=== PATIENT | female | born 1930 | race Caucasian/White ===

== ENCOUNTER 2017-01-17 17:48 | Inpatient (IN) | payer MEDICARE, BC ==
--- NOTE | ~2017-01-17 | PUL ---
[facility] [address] [place]. [address] NAME: LUANA LANZA : [birth year] STATUS : ADM IN PAT#: [id number] AGE: 86 ADM/REG DATE : 01/17/17 MR#: [id number] REPORT SERV DATE: 01/25/17 DICTATED BY: DARA REICH DATE: 01/25/17 REPORT STATUS : Draft TRANSCRIBED BY: MODL DATE: 01/25/17 PULMONARY FUNCTION TEST OVERNIGHT OXIMETRY START DATE OF TESTIN01/23/2017. END DATE OF TESTIN01/24/2017. COMMENTS: Testing was conducted with the patient breathing room air. RESULTS: Total valid sampling time 6 hours 18 minutes and 23 seconds. Total time with an oxygen saturation less than 88%, 4 hours 4 minutes and 2 seconds. Oxygen desaturation event index 20.0. IMPRESSION: There was significant desaturation during this study conducted while the patient was breathing room air. Additionally, the oxygen desaturation index was elevated suggestive of possible obstructive sleep apnea. Recommend supplemental oxygen at a minimum flow rate of 2 L/minute with sleep. Additionally, recommend sleep study to evaluate for obstructive sleep apnea if clinically indicated. PS/MODL Dara Reich M.D. / [id number] CC: Denis Sherwood M.D.
--- NOTE | ~2017-01-17 | DS ---
Discharge Summary [facility] [address] [place]. [address] NAME: LUANA LANZA : [birth year] STATUS : DIS IN PAT#: [id number] AGE: 86 ADM/REG DATE : 01/17/17 MR#: [id number] REPORT SERV DATE: 01/26/17 DICTATED BY: PERCY NELSON DATE: 01/25/17 REPORT STATUS : Draft TRANSCRIBED BY: MODL DATE: 01/25/17 ADMISSION DATE: 01/17/2017 DISCHARGE DATE: 01/25/2017 DISCHARGE DIAGNOSES: 1. Acute hypoxemic respiratory failure. 2. Possible partially treated pneumonia on admission. 3. Suspected pulmonary emboli, V/Q scanning, and CT imaging declined by the patient. 4. Popliteal deep vein thrombosis, left. 5. Type 2 diabetes. Hemoglobin A1c 6.3. 6. Elevated BNP with normal ejection fraction. 7. Hypertension. 8. Coronary artery disease, see cardiac catheterization 05/2015, with severe coronary calcification. Guideline directed medical therapy recommended at that time. 9. Anemia. 10.B12 deficiency on replacement. 11.Vitamin D deficiency on replacement. 12.History of colon polyps and diverticulosis. Last colonoscopy 03/05/2014. OPERATIONS AND PROCEDURES: None. PRESENT ILLNESS: This is an 86-year-old white female who was admitted by Dr. Aguirre on 01/17/2017 with diagnoses of: 1. Bilateral pneumonia. 2. Acute hypoxia. 3. Type 2 diabetes. 4. Hypertension as described on admission history and physical examination. Significant history was that she had been in the emergency room on 01/15/2017 with shortness of breath and a productive cough with clear mucus. A chest x-ray showed possible infiltrate versus atelectasis. She was sent home on azithromycin. She returned to her primary care physician's office without improvement with significant hypoxemia with an O2 sat of 86%. She is referred for admission. ADDITIONAL HISTORY: Per Dr. Aguirre. PHYSICAL EXAMINATION: Per Dr. Aguirre. ADMISSION LABORATORY: Per Dr. Aguirre. HOSPITAL COURSE: She was admitted as described. Cultures were obtained in addition to standard pneumonia studies. She was started on antimicrobial therapy with Levaquin and subsequently changed to Zithromax and cefadroxil. Relative to the possibility of partially treated pneumonia on admission, she had a white count that was 10.6. Urine Legionella and streptococcal antigens were negative. Flu screen Discharge Summary [facility] [address] [place]. [address] NAME: LUANA LANZA : [birth year] STATUS : DIS IN PAT#: [id number] AGE: 86 ADM/REG DATE : 01/17/17 MR#: [id number] REPORT SERV DATE: 01/26/17 DICTATED BY: PERCY NELSON DATE: 01/25/17 REPORT STATUS : Draft TRANSCRIBED BY: JAMIL DATE: 01/25/17 was negative. Blood cultures done on 01/15/2017 through the emergency room and 01/17/2017 on admission here were negative. A sputum was referred for culture but the quality was poor and no culture was done. Her chest x-ray on 01/15/2017 in the emergency room showed patchy bibasilar atelectasis or infiltrate with small amount of pleural fluid. Her admission chest x-ray on 01/17/2017 showed shallow inspiration with mild right basilar atelectasis. Venous ultrasound imaging done because of edema on 01/18/2017 showed partial deep clot in the popliteal and calf vein on the left. CTA chest for V/Q imaging was recommended to the patient but declined. Heparin and Coumadin were initiated. An echocardiogram was done to evaluate her left and right ventricular function and this was normal. Her hospitalist care was assumed by the undersigned on 01/21/2017 and she was followed until discharge. She had no mucosal bleeding on heparin and Coumadin. Her discharge INR was 2.3 on the 15th, having been 2.3 on the 14th, 1.9 on the 13. She did not report any mucosal bleeding on anticoagulation. Her hemoglobin levels were 11.8 on the , 10.3 on the 12th, and 10.4 at discharge. Her BNP was elevated at 619 on the . Her echo was as noted. Diuretic therapy was initiated by the undersigned and a followup BNP was 230 on 01/22/2017. By the time of discharge, her edema had significantly improved. Her O2 sat at rest was normal at 94 but she significantly desaturated to 84 with ambulation and home O2 was prescribed. It was felt by the undersigned that she likely had sleep- disordered breathing. Overnight oximetry was done and she had significant desaturation with an O2 sat less than 88%, 4 hours 4 minutes and 2 seconds. Supplemental oxygen was recommended with additional outpatient sleep study testing. She initially declined but later accepted home health care. She was seen by physical therapy on the and home with home health care PT was recommended. Today, it was felt that she has achieved a level of improvement and stability where she can be safely discharged home with outpatient followup to see Dr. Esteban's partner, Dr. Robertson on Sunday at 8:30 for PT, INR, CBC, and office followup. She will have home health care for home evaluation med rec, PT eval and treatment and Coumadin teaching. She will have O2 at 2 L/min by nasal cannula with ambulation and at night. DISCHARGE MEDICATIONS: Her discharge medications will be aspirin 81 mg daily; atenolol 50 mg daily; vitamin B12, 1000 mcg daily; vitamin D 2000 units daily; Lasix 20 mg twice daily; Mucinex 1200 mg twice daily; potassium 10 mEq with meals; Coumadin 3 mg on odd days, 4 mg on even days, pending outpatient followup; Glucotrol 20 mg before breakfast and supper watching Discharge Summary [address] [address] NAME: LUANA LANZA : [birth year] STATUS : DIS IN PAT#: [id number] AGE: 86 ADM/REG DATE : 01/17/17 MR#: [id number] REPORT SERV DATE: 01/26/17 DICTATED BY: PERCY NELSON DATE: 01/25/17 REPORT STATUS : Draft TRANSCRIBED BY: JAMIL DATE: 01/25/17 for hypoglycemia (home dose); Zofran 4 mg p.o. every 4 hours as needed for nausea and vomiting. Discharge time greater than 30 minutes. DICTATED BY: Percy Nelson M.D. DD/JAMIL Percy Nelson M.D. / [id number] CC: Denis Sherwood M.D.
--- NOTE | ~2017-01-17 | HP ---
History And Physical [place] [address] [facility] [place]. [address] NAME: LUANA LANZA : [birth year] STATUS : ADM IN [facility]#: [id number] AGE: 86 ADM/REG DATE : 01/17/17 MR#: [id number] REPORT SERV DATE: 01/18/17 DICTATED BY: MARISEL RECINOS DATE: 01/17/17 REPORT STATUS : Draft TRANSCRIBED BY: JAMIL DATE: 01/17/17 DATE OF ADMISSION: 01/17/2017 CHIEF COMPLAINT: Shortness of breath and cough. HISTORY OF PRESENT ILLNESS: This is an 86-year-old female with a past medical history of hypertension and type 2 diabetes, on 01/15/2017, developed shortness of breath and worsening productive cough, which the patient states it was a clear mucus, but worsening breathing and painful deep inspiration. She came to the emergency department on 01/15/2017, had lab work done and he was also diagnosed with bilateral pneumonia and sent home with azithromycin. The patient was seen by primary care's office today with Dr. Esteban, who examined the patient, for which the patient had complaints of worsening symptoms, increased fatigue. The patient also was found to be hypoxic with an O2 saturation of 86%. The patient denied any orthopnea, denied any increased lower extremity edema. She is not up to date for her Pneumovax nor influenza vaccines and was directly admitted to the hospital by her primary care and brought by EMS. PAST MEDICAL HISTORY: Coronary artery disease, B12 deficiency, type 2 diabetes, hyperlipidemia, hypertension, vitamin D deficiency, history of pneumonia. ALLERGIES: ALLERGIES TO METFORMIN AND SULFA. HOME MEDICATIONS: Nitroglycerin sublingual p.r.n., glipizide 10 mg two tablets in the morning, one tablet at noon, and two tablets in the evening, vitamin D 1000 units p.o. daily, atenolol 50 mg p.o. daily, aspirin 325 mg p.o. daily, azithromycin/Z-Bro, omega-3, and fish oil. FAMILY HISTORY: Hypertension and type 2 diabetes. PAST SURGICAL HISTORY: Cholecystectomy, hysterectomy, tonsillectomy, and cataract surgery per primary care's medical records. SOCIAL HISTORY: Denies any history of tobacco, alcohol, or illicit drugs. Lives at home with her daughter. PHYSICAL EXAMINATION: VITAL SIGNS: Temp of 97.3, blood pressure 180/73 with a pulse of 76, respirations 16, and saturating 94% on 2 L. GENERAL: The patient is alert, oriented, and currently in no distress. Well nourished. HEENT: Pupils equal, round, and reactive to light. Extraocular muscles are intact. Mild dry mucous membranes. CARDIOVASCULAR: S1, S2. No appreciated rubs or gallops. No JVD. RESPIRATORY: Decreased breath sounds at the base. The patient is not able to take full deep breaths, however, no wheezing, no rhonchi appreciated and currently no tachypnea. ABDOMEN: Positive bowel sounds. Soft, nontender. No rebound. No fluid waves. No distention. History And Physical [address] [address] NAME: LUANA LANZA : [birth year] STATUS : ADM IN [facility]#: [id number] AGE: 86 ADM/REG DATE : 01/17/17 MR#: [id number] REPORT SERV DATE: 01/18/17 DICTATED BY: MARISEL RECINOS DATE: 01/17/17 REPORT STATUS : Draft TRANSCRIBED BY: JAMIL DATE: 01/17/17 EXTREMITIES: 2+ pulse bilaterally with trace of edema of the right lower extremity and a positive increased pedal edema of the left lower extremity, greater than the right. Positive pulses. NEUROLOGIC: Cranial nerves II through XII are grossly intact. He moves all four extremities. No neuro focal deficits. LABORATORY DATA: Currently pending. EKG with normal sinus rhythm, Q-waves with the inferior leads. No ST elevation. ASSESSMENT AND PLAN: 1. Bilateral pneumonia. 2. Acute hypoxia. 3. Type 2 diabetes. 4. Hypertension. We will recheck repeat labs. We will repeat chest x-ray. We will place on antibiotics. We will give IV antibiotics for now. Follow up with blood culture. Also, we will place on bronchodilators and incentive spirometer for pulmonary toileting. The patient will be admitted to a cardiac telemetry, closely monitored with fall precautions ordered. ADA diet. Also, we will check a urine Strep and urine Legionella antigen as well as an influenza swab. I will closely monitor. GT/JAMIL Marisel Recinos M.D. / [id number] CC: Denis Smith M.D.
[~2017-01-17 17:48] MED LIST: ASAB PO; CHERATUSSIN PO; COREG6 PO; GLUCOTRO10 PO; IMDUR30 PO; LIPITOR40 PO; NORV5 PO; NTG150 SL; OMNICEF300 PO; PLAVIX PO; PRIN5 PO; TAMIFLU PO; TESS PO; VITAMIN D1000 UNI1 PO; ZITH250 PO; [UNRECOGNIZED DRUG - OTHER] PO
[2017-01-17] MEDS ORDERED: ASAEC PO (20:15)
[2017-01-17] MEDS ORDERED: CYANO1000T PO (20:23)
[2017-01-17] MEDS ORDERED: ATEN50 PO (20:23)
[2017-01-17 20:25] LABS: BASOPHILS 0.1 %; BASOPHILS ABSOLUTE 0.01 10/3/uL (0.0-0.16); EOSINOPHILS 0.1 %; EOSINOPHILS ABSOLUTE 0.01 10/3/uL (0.0-0.53); HEMATOCRIT 38.3 % (36.0-48.0); HEMOGLOBIN 11.8 g/dL (12.0-16.0); IMMATURE GRANULOCYTES 0.2 %; IMMATURE GRANULOCYTES ABSOLUTE 0.02 10/3/uL (0.0-0.11); LYMPHOCYTES 15.1 %; MEAN CORPUS HGB CONC 30.8 g/dL (32.0-36.0); MEAN CORPUSCULAR VOLUME 81.1 fL (80-100); MEAN PLATELET VOLUME 9.2 fL (9.2-13.0); MONOCYTES 6.8 %; MONOCYTES ABSOLUTE 0.72 10/3/uL (0.21-1.20); NEUTROPHILS 77.7 %; NEUTROPHILS ABSOLUTE 8.21 10/3/uL (2.02-8.40); PLATELET COUNT 222 10/3/uL (150-400); RBC DISTRIBUTION WIDTH 16.9 % (12.0-16.0); RED CELL COUNT 4.72 10/6/uL (4.0-5.6)
[2017-01-17 20:26] LABS: MANUAL DIFF NO %; WHITE BLOOD CELLS 10.6 10/3/uL (4.5-10.5)
[2017-01-17 20:33] LABS: INTERNATIONAL NORMAL RATI 1.2 UNITS (-); PARTIAL THROMBO TIME 25.6 SEC (22.5-37.2); PROTIME (NOT ORD) 14.7 SEC (12.0-14.5)
[2017-01-17 20:49] LABS: A/G RATIO 0.8 (0.7-1.9); ALBUMIN 3.2 G/DL (3.5-5.0); BUN (BLOOD UREA NITROGEN) 15 MG/DL (6-23); CALCIUM, SERUM 9.7 MG/DL (8.5-10.4); CHLORIDE, SERUM 104 MMOL/L (96-112); CO2 (CARBON DIOXIDE) 30 MMOL/L (24-34); CREATININE 0.79 MG/DL (0.55-1.02); GFR AFRICAN AMERICAN 78 ML/MIN (>=60); GFR NON AFRICAN AMERICAN 67 ML/MIN (>=60); POTASSIUM, SERUM 3.6 MMOL/L (3.5-5.3); SGOT(AST) 31 U/L (5-40); SGPT(ALT) 22 U/L (5-65); TOTAL BILIRUBIN 0.4 MG/DL (0-1.2); TOTAL PROTEIN 7.2 G/DL (6.0-8.5)
[2017-01-17 20:50] LABS: ALKALINE PHOSPHATASE 90 U/L (45-117); GLUCOSE, SERUM 137 MG/DL (60-99); SODIUM, SERUM 133 MMOL/L (135-148)
[2017-01-17 23:08] LABS: INFLUENZA A SCREEN NEGATIVE (NEGATIVE); INFLUENZA B SCREEN NEGATIVE (NEGATIVE)
[2017-01-18 04:30] LABS: BASOPHILS 0.1 %; BASOPHILS ABSOLUTE 0.01 10/3/uL (0.0-0.16); EOSINOPHILS 0.1 %; EOSINOPHILS ABSOLUTE 0.01 10/3/uL (0.0-0.53); HEMATOCRIT 37.3 % (36.0-48.0); HEMOGLOBIN 11.6 g/dL (12.0-16.0); IMMATURE GRANULOCYTES 0.3 %; IMMATURE GRANULOCYTES ABSOLUTE 0.03 10/3/uL (0.0-0.11); LYMPHOCYTES 10.2 %; MANUAL DIFF NO %; MEAN CORPUS HGB CONC 31.1 g/dL (32.0-36.0); MEAN CORPUSCULAR HEMOGLOB 25.3 pg (26.0-34.0); MEAN CORPUSCULAR VOLUME 81.4 fL (80-100); MEAN PLATELET VOLUME 9.4 fL (9.2-13.0); MONOCYTES 8.3 %; MONOCYTES ABSOLUTE 0.81 10/3/uL (0.21-1.20); NEUTROPHILS ABSOLUTE 7.92 10/3/uL (2.02-8.40); PLATELET COUNT 219 10/3/uL (150-400); RBC DISTRIBUTION WIDTH 17.1 % (12.0-16.0); RED CELL COUNT 4.58 10/6/uL (4.0-5.6); WHITE BLOOD CELLS 9.8 10/3/uL (4.5-10.5)
[2017-01-18 04:50] LABS: BUN (BLOOD UREA NITROGEN) 15 MG/DL (6-23); CALCIUM, SERUM 9.6 MG/DL (8.5-10.4); CHLORIDE, SERUM 104 MMOL/L (96-112); CO2 (CARBON DIOXIDE) 30 MMOL/L (24-34); CREATININE 0.85 MG/DL (0.55-1.02); GFR AFRICAN AMERICAN 71 ML/MIN (>=60); GFR NON AFRICAN AMERICAN 62 ML/MIN (>=60); POTASSIUM, SERUM 3.4 MMOL/L (3.5-5.3); SODIUM, SERUM 136 MMOL/L (135-148)
[2017-01-18 04:54] LABS: GLUCOSE, SERUM 66 MG/DL (60-99)
[2017-01-18 12:50] LABS: GLYCOHEMOGLOBIN (HbA1c) 6.3 % (4.7-6.1)
[2017-01-20 06:59] LABS: HEMOGLOBIN 11.4 g/dL (12.0-16.0)
[2017-01-20 07:05] LABS: INTERNATIONAL NORMAL RATI 1.2 UNITS (-); PROTIME (NOT ORD) 14.9 SEC (12.0-14.5)
[2017-01-21 04:17] LABS: INTERNATIONAL NORMAL RATI 1.2 UNITS (-)
[2017-01-21 04:19] LABS: HEMATOCRIT 34.4 % (36.0-48.0); HEMOGLOBIN 10.6 g/dL (12.0-16.0)
[2017-01-22 05:34] LABS: BASOPHILS 0.2 %; BASOPHILS ABSOLUTE 0.01 10/3/uL (0.0-0.16); EOSINOPHILS 1.6 %; EOSINOPHILS ABSOLUTE 0.08 10/3/uL (0.0-0.53); HEMATOCRIT 33.8 % (36.0-48.0); HEMOGLOBIN 10.3 g/dL (12.0-16.0); IMMATURE GRANULOCYTES 0.2 %; IMMATURE GRANULOCYTES ABSOLUTE 0.01 10/3/uL (0.0-0.11); LYMPHOCYTES 20.8 %; LYMPHOCYTES ABSOLUTE 1.07 10/3/uL (0.67-4.30); MEAN CORPUS HGB CONC 30.5 g/dL (32.0-36.0); MEAN CORPUSCULAR HEMOGLOB 24.4 pg (26.0-34.0); MEAN CORPUSCULAR VOLUME 80.1 fL (80-100); MEAN PLATELET VOLUME 8.8 fL (9.2-13.0); MONOCYTES 10.1 %; MONOCYTES ABSOLUTE 0.52 10/3/uL (0.21-1.20); NEUTROPHILS 67.1 %; NEUTROPHILS ABSOLUTE 3.46 10/3/uL (2.02-8.40); PLATELET COUNT 268 10/3/uL (150-400); RBC DISTRIBUTION WIDTH 16.9 % (12.0-16.0); RED CELL COUNT 4.22 10/6/uL (4.0-5.6)
[2017-01-22 05:40] LABS: INTERNATIONAL NORMAL RATI 1.5 UNITS (-)
[2017-01-22 05:41] LABS: CALCIUM, SERUM 9.5 MG/DL (8.5-10.4); CHLORIDE, SERUM 103 MMOL/L (96-112); CO2 (CARBON DIOXIDE) 29 MMOL/L (24-34); CREATININE 0.76 MG/DL (0.55-1.02); GFR AFRICAN AMERICAN 82 ML/MIN (>=60); GFR NON AFRICAN AMERICAN 71 ML/MIN (>=60); SODIUM, SERUM 139 MMOL/L (135-148)
[2017-01-22 05:43] LABS: BUN (BLOOD UREA NITROGEN) 11 MG/DL (6-23); GLUCOSE, SERUM 136 MG/DL (60-99)
[2017-01-22 05:45] LABS: MANUAL DIFF NO %; WHITE BLOOD CELLS 5.2 10/3/uL (4.5-10.5)
[2017-01-22 06:05] LABS: PARTIAL THROMBO TIME 113.1 SEC (22.5-37.2); PROTIME (NOT ORD) 17.9 SEC (12.0-14.5)
[2017-01-23 07:14] LABS: BASOPHILS 0.4 %; BASOPHILS ABSOLUTE 0.02 10/3/uL (0.0-0.16); EOSINOPHILS 1.5 %; EOSINOPHILS ABSOLUTE 0.08 10/3/uL (0.0-0.53); HEMOGLOBIN 11.5 g/dL (12.0-16.0); IMMATURE GRANULOCYTES 0.6 %; IMMATURE GRANULOCYTES ABSOLUTE 0.03 10/3/uL (0.0-0.11); LYMPHOCYTES 23.1 %; LYMPHOCYTES ABSOLUTE 1.25 10/3/uL (0.67-4.30); MEAN CORPUS HGB CONC 30.3 g/dL (32.0-36.0); MEAN CORPUSCULAR HEMOGLOB 24.6 pg (26.0-34.0); MEAN CORPUSCULAR VOLUME 81.4 fL (80-100); MEAN PLATELET VOLUME 8.8 fL (9.2-13.0); MONOCYTES ABSOLUTE 0.54 10/3/uL (0.21-1.20); NEUTROPHILS 64.4 %; NEUTROPHILS ABSOLUTE 3.49 10/3/uL (2.02-8.40); PLATELET COUNT 304 10/3/uL (150-400); RBC DISTRIBUTION WIDTH 16.9 % (12.0-16.0); RED CELL COUNT 4.67 10/6/uL (4.0-5.6); WHITE BLOOD CELLS 5.4 10/3/uL (4.5-10.5)
[2017-01-23 07:16] LABS: INTERNATIONAL NORMAL RATI 1.9 UNITS (-)
[2017-01-23 07:17] LABS: PARTIAL THROMBO TIME 85.6 SEC (22.5-37.2)
[2017-01-23 07:18] LABS: MANUAL DIFF NO %
[2017-01-23 07:19] LABS: PROTIME (NOT ORD) 21.5 SEC (12.0-14.5)
[2017-01-23 07:23] LABS: BUN (BLOOD UREA NITROGEN) 12 MG/DL (6-23); CALCIUM, SERUM 10.1 MG/DL (8.5-10.4); CHLORIDE, SERUM 98 MMOL/L (96-112); CO2 (CARBON DIOXIDE) 34 MMOL/L (24-34); CREATININE 0.77 MG/DL (0.55-1.02); GFR AFRICAN AMERICAN 80 ML/MIN (>=60); GFR NON AFRICAN AMERICAN 69 ML/MIN (>=60); GLUCOSE, SERUM 152 MG/DL (60-99); POTASSIUM, SERUM 4.2 MMOL/L (3.5-5.3); SODIUM, SERUM 137 MMOL/L (135-148)
[2017-01-24 04:58] LABS: BASOPHILS 0.4 %; BASOPHILS ABSOLUTE 0.02 10/3/uL (0.0-0.16); EOSINOPHILS 1.5 %; EOSINOPHILS ABSOLUTE 0.08 10/3/uL (0.0-0.53); HEMATOCRIT 35.3 % (36.0-48.0); HEMOGLOBIN 10.8 g/dL (12.0-16.0); IMMATURE GRANULOCYTES 0.4 %; IMMATURE GRANULOCYTES ABSOLUTE 0.02 10/3/uL (0.0-0.11); LYMPHOCYTES 19.1 %; LYMPHOCYTES ABSOLUTE 0.99 10/3/uL (0.67-4.30); MEAN CORPUS HGB CONC 30.6 g/dL (32.0-36.0); MEAN CORPUSCULAR HEMOGLOB 24.7 pg (26.0-34.0); MEAN CORPUSCULAR VOLUME 80.6 fL (80-100); MEAN PLATELET VOLUME 8.6 fL (9.2-13.0); MONOCYTES 11.6 %; NEUTROPHILS ABSOLUTE 3.47 10/3/uL (2.02-8.40); PLATELET COUNT 290 10/3/uL (150-400); RBC DISTRIBUTION WIDTH 16.6 % (12.0-16.0); RED CELL COUNT 4.38 10/6/uL (4.0-5.6); WHITE BLOOD CELLS 5.2 10/3/uL (4.5-10.5)
[2017-01-24 05:04] LABS: MANUAL DIFF NO %
[2017-01-24 05:09] LABS: BUN (BLOOD UREA NITROGEN) 13 MG/DL (6-23); CALCIUM, SERUM 9.9 MG/DL (8.5-10.4); CHLORIDE, SERUM 98 MMOL/L (96-112); CO2 (CARBON DIOXIDE) 32 MMOL/L (24-34); CREATININE 0.67 MG/DL (0.55-1.02); GFR AFRICAN AMERICAN 92 ML/MIN (>=60); GFR NON AFRICAN AMERICAN 79 ML/MIN (>=60); GLUCOSE, SERUM 136 MG/DL (60-99); POTASSIUM, SERUM 3.8 MMOL/L (3.5-5.3); SODIUM, SERUM 137 MMOL/L (135-148)
[2017-01-24 05:15] LABS: INTERNATIONAL NORMAL RATI 2.3 UNITS (-); PROTIME (NOT ORD) 24.8 SEC (12.0-14.5)
[2017-01-25 05:25] LABS: BASOPHILS 0.4 %; BASOPHILS ABSOLUTE 0.02 10/3/uL (0.0-0.16); EOSINOPHILS 1.3 %; EOSINOPHILS ABSOLUTE 0.07 10/3/uL (0.0-0.53); HEMOGLOBIN 10.4 g/dL (12.0-16.0); IMMATURE GRANULOCYTES 0.2 %; IMMATURE GRANULOCYTES ABSOLUTE 0.01 10/3/uL (0.0-0.11); LYMPHOCYTES 24.4 %; LYMPHOCYTES ABSOLUTE 1.33 10/3/uL (0.67-4.30); MEAN CORPUS HGB CONC 30.6 g/dL (32.0-36.0); MEAN CORPUSCULAR HEMOGLOB 24.9 pg (26.0-34.0); MEAN CORPUSCULAR VOLUME 81.3 fL (80-100); MEAN PLATELET VOLUME 8.8 fL (9.2-13.0); MONOCYTES 11.7 %; MONOCYTES ABSOLUTE 0.64 10/3/uL (0.21-1.20); NEUTROPHILS ABSOLUTE 3.39 10/3/uL (2.02-8.40); PLATELET COUNT 296 10/3/uL (150-400); RBC DISTRIBUTION WIDTH 16.8 % (12.0-16.0); RED CELL COUNT 4.18 10/6/uL (4.0-5.6); WHITE BLOOD CELLS 5.5 10/3/uL (4.5-10.5)
[2017-01-25 05:31] LABS: MANUAL DIFF NO %
[2017-01-25 05:38] LABS: BUN (BLOOD UREA NITROGEN) 15 MG/DL (6-23); CALCIUM, SERUM 9.5 MG/DL (8.5-10.4); CHLORIDE, SERUM 100 MMOL/L (96-112); CO2 (CARBON DIOXIDE) 34 MMOL/L (24-34); CREATININE 0.77 MG/DL (0.55-1.02); GFR AFRICAN AMERICAN 80 ML/MIN (>=60); GFR NON AFRICAN AMERICAN 69 ML/MIN (>=60); GLUCOSE, SERUM 122 MG/DL (60-99); POTASSIUM, SERUM 4.5 MMOL/L (3.5-5.3); SODIUM, SERUM 138 MMOL/L (135-148)
[2017-01-25 05:40] LABS: INTERNATIONAL NORMAL RATI 2.3 UNITS (-); PROTIME (NOT ORD) 25.3 SEC (12.0-14.5)
[2017-01-25 05:43] LABS: PARTIAL THROMBO TIME 123.4 SEC (22.5-37.2)
[2017-01-25] MEDS ORDERED: ASAB PO (10:55)
[2017-01-25] MEDS ORDERED: KLOR-CON 1010 MEQ PO (10:58)
[2017-01-25] MEDS ORDERED: L20 PO (11:00)
[2017-01-25] MEDS ORDERED: ZOFRAN ODT4 MG PO (11:01)
[2017-01-25] MEDS ORDERED: COUMADIN3 MG PO (11:03)
[2017-01-25] MEDS ORDERED: COUMADIN4 MG PO (11:04)
[2017-01-25] MEDS ORDERED: HUMI PO (11:05)
[2017-03-21] MEDS ORDERED: HALF81 PO (19:46)
[2017-03-21] MEDS ORDERED: XARELTO20 MG PO (19:47)
[2017-03-21] MEDS ORDERED: IMDUR30 PO (19:48)
[2017-03-21] MEDS ORDERED: NITROSTAT0.4 MG SL (19:49)
[2017-03-21] MEDS ORDERED: COZ50 PO (19:50)
[2017-03-21] MEDS ORDERED: GLUCOTRO10 PO (19:50)
[2017-03-21] MEDS ORDERED: PERI-COLACE1 TAB PO (19:57)
[2017-04-19] MEDS ORDERED: REG5 PO (20:13)
[2017-04-19] MEDS ORDERED: KLOR-CON 1010 MEQ PO (20:13)
[2017-04-19] MEDS ORDERED: PRILO PO (20:13)
[2017-04-19] MEDS ORDERED: BUM1 PO (20:13)
[2017-04-19] MEDS ORDERED: VIST50 PO (20:15)
[2017-04-19] MEDS ORDERED: ZOLOFT25 MG PO (20:15)
== END 2017-01-25 17:12 | disposition home health service (06) | DRG 175 ==
LOC: 6NO 17:48
PROVIDERS: Internal Medicine
DX: I26.99 Other pulmonary embolism without acute cor pulmonale (principal); J18.9 Pneumonia, unspecified organism; J96.01 Acute respiratory failure with hypoxia; I82.432 Acute embolism and thrombosis of left popliteal vein; E11.9 Type 2 diabetes mellitus without complications; I10 Essential (primary) hypertension; I25.10 Atherosclerotic heart disease of native coronary artery without angina pectoris; I25.2 Old myocardial infarction; E53.8 Deficiency of other specified B group vitamins; K57.30 Diverticulosis of large intestine without perforation or abscess without bleeding; Z90.49 Acquired absence of other specified parts of digestive tract; Z86.010 Personal history of colon polyps; Z87.01 Personal history of pneumonia (recurrent); Z90.710 Acquired absence of both cervix and uterus; Z88.8 Allergy status to other drugs, medicaments and biological substances; Z88.2 Allergy status to sulfonamides; Z82.49 Family history of ischemic heart disease and other diseases of the circulatory system; Z79.82 Long term (current) use of aspirin; Z79.84 Long term (current) use of oral hypoglycemic drugs; Z79.899 Other long term (current) drug therapy
CPT/HCPCS: 71010; 71020; 80048; 80053; 82962; 83036; 83735; 83880; 84132; 84443; 84484; 85014; 85018; 85025; 85379; 85610; 85730; 87040; 87070; 87205; 87449; 87804; 93005; 93306; 93970; 94640; 94762; 97110-GP; 97116-GP; 97162-GP; 97530-GP; 99285; A9270-GY; G8978-CJ-GP; G8979-CI-GP; J1956

== ENCOUNTER 2017-01-27 21:34 | Inpatient (IN) | payer MEDICARE, BC ==
--- NOTE | ~2017-01-27 | DS ---
Discharge Summary [facility] [address] [place]. [address] NAME: LUANA LANZA : [birth year] STATUS : DIS IN PAT#: [id number] AGE: 86 ADM/REG DATE : 01/27/17 MR#: [id number] REPORT SERV DATE: 02/01/17 DICTATED BY: TONY ARIAS DATE: 01/31/17 REPORT STATUS : Draft TRANSCRIBED BY: MODL DATE: 01/31/17 ADMISSION DATE: 01/27/2017 DISCHARGE DATE: 01/30/2017 REASON FOR ADMISSION: This is an 86-year-old female who came in with chief complaint of shortness of breath after having a recent hospital stay from 01/17/2017 to 01/25/2017 for pneumonia, left lower extremity DVT, and presumed PE. DISCHARGE DIAGNOSES: 1. Multifactorial hypoxemic respiratory failure. 2. Elevated troponin secondary to type 2 demand ischemia. 3. Suspected pulmonary embolism. 4. Recent subacute left lower extremity deep venous thrombosis. 5. Diabetes type 2. 6. Hypertension. HOSPITAL COURSE: 1. Hypoxemic respiratory failure, multifactorial. The patient was admitted and Cardiology was consulted due to an abnormal troponin level that was 0.61, and then a followup troponin was 0.53 and 0.26. As previously mentioned, the patient just had a recent hospital stay for pneumonia and presumed PE after finding a left lower extremity DVT. The patient had refused to let a CTA of the chest or V/Q scan be taken, so the patient was presumed to have a PE and placed on Coumadin. Her INR when coming in to the hospital at admit was 1.6. She was found to have the elevated troponins, but due to the recent respiratory issues and PE, the feeling was that this elevated troponin was secondary to type 2 demand ischemia. The patient's dyspnea resolved here at the hospital. She was already on home oxygen after her last hospitalization and she was at her baseline at 2 liters nasal cannula without any respiratory distress. After speaking with the patient about using Coumadin, she was not excited about having the frequent PT/INRs drawn at home and dosage changes with the Coumadin. Apparently, the Xarelto and Eliquis had been explored options for her at the last hospital stay, but her insurance would cover Xarelto at a cost of 40 dollars per month co-pay. She felt like that was too expensive, but after having gone home and dealt with the Coumadin maintenance, she felt like she wanted to go ahead and try the Xarelto, so we have discontinued her Coumadin and started her on Xarelto here at the hospital. The patient was able to adequately walk to the kitchen, restroom, and bedroom at home and her ambulatory status has not changed here at the hospital, so she had home health and will need to resume that at discharge. DISCHARGE CONDITION: Stable. DISCHARGE MEDICATIONS: 1. Glipizide 20 mg p.o. a.c. and h.s. 2. Vitamin D 2000 units p.o. daily. 3. Vitamin B12 1000 mcg p.o. daily. 4. Aspirin 81 mg p.o. daily. Discharge Summary [address] [address] NAME: LUANA LANZA : [birth year] STATUS : DIS IN PAT#: [id number] AGE: 86 ADM/REG DATE : 01/27/17 MR#: [id number] REPORT SERV DATE: 02/01/17 DICTATED BY: TONY ARIAS DATE: 01/31/17 REPORT STATUS : Draft TRANSCRIBED BY: JAMIL DATE: 01/31/17 5. Potassium chloride 10 mEq p.o. t.i.d. 6. Lasix 40 mg p.o. daily. 7. Isosorbide mononitrate 30 mg p.o. b.i.d. 8. Lopressor 50 mg p.o. b.i.d. 9. Xarelto 20 mg p.o. daily. DISCHARGE PLAN: The patient is discharged home to resume home health services, initiate Xarelto and discontinue Coumadin, and followup with Cardiology in one month and her primary care, Dr. Cristian Esteban, in one to two weeks. DICTATED BY: ROB Salas/JAMIL Tony Arias APN / [id number] CC: Denis Yanez M.D.
--- NOTE | ~2017-01-27 | HP ---
History And Physical [place] [address] [facility] [place]. [address] NAME: LUANA LANZA : [birth year] STATUS : ADM IN [facility]#: [id number] AGE: 86 ADM/REG DATE : 01/27/17 MR#: [id number] REPORT SERV DATE: 01/28/17 DICTATED BY: GARDENIA GLORIA DATE: 01/27/17 REPORT STATUS : Draft TRANSCRIBED BY: MODL DATE: 01/27/17 DATE OF ADMISSION: 01/27/2017 POINT OF ENTRY: Transfer from [facility] Emergency Department. PRIMARY INSPECTOR WATER POLLUTION CONTROL: Dr. Quick. CHIEF COMPLAINT: Shortness of breath. HISTORY OF PRESENT ILLNESS: Ms. Lanza is an 86-year-old female with a history of non- insulin-dependent diabetes mellitus type 2, hypertension, coronary artery disease, as well as a recent diagnosis of pneumonia and lower extremity DVT, who presented to [facility] Emergency Department with report of acute onset of shortness of breath. The patient was admitted to our service from 01/17/2017 through 01/25/2017 for pneumonia, hypoxic respiratory failure, left lower extremity DVT, as well as presumed pulmonary embolism. She was initiated on anticoagulation. She completed her course of antibiotic therapy during her hospital stay. Echocardiogram done at that time was unremarkable despite an elevated BNP. Overnight pulse oximetry was notable for nocturnal hypoxemia with recommendation for formal sleep study. She was discharged to home with 2 L by nasal cannula at night as well as with ambulation. The patient states that she was doing well up until today when she noted the acute onset of shortness of breath both at rest as well as with exertion. She denied any fevers, night sweats, chills, chest pain, palpitations, abdominal pain, nausea, vomiting, diarrhea, constipation, dysuria, lower extremity edema, melena, hematochezia, or hemoptysis. She does report some cough and sputum production, which is unchanged as well as occasional wheezing. Initial evaluation at [facility] Emergency Department is notable for a chest x-ray that shows a small right-sided pleural effusion, but otherwise negative for pneumonia. Labs were notable for an INR of 1.3. Troponin was elevated at 0.70. D-dimer also elevated at 1.53 as was her proBNP of 2523. Given the subtherapeutic INR, she was placed on a heparin drip. Given aspirin, DuoNebs, as well as a single dose of IV Lasix 40 mg IV x1. Upon arrival to [facility], she reports that her shortness of breath has significantly improved. She cannot tell me what exactly improved her breathing. Comprehensive review of system otherwise negative unless listed in history of present illness. PREVIOUS MEDICAL HISTORY: 1. Left lower extremity DVT, on Coumadin. 2. Pfc-mivqxey-swltyqlra diabetes mellitus type 2. Hemoglobin A1c of 6.3. 3. Hypertension. 4. Coronary artery disease. 5. Presumed obstructive sleep apnea, awaiting formal sleep study test. 6. Vitamin B12 deficiency. History And Physical [place] [address] [facility] [place]. [address] NAME: LUANA LANZA : [birth year] STATUS : ADM IN [facility]#: [id number] AGE: 86 ADM/REG DATE : 01/27/17 MR#: [id number] REPORT SERV DATE: 01/28/17 DICTATED BY: GARDENIA GLORIA DATE: 01/27/17 REPORT STATUS : Draft TRANSCRIBED BY: JAMIL DATE: 01/27/17 7. Vitamin D deficiency. 8. Chronic anemia. SURGICAL HISTORY: 1. Cholecystectomy. 2. Tonsillectomy. 3. Abdominal hysterectomy. 4. Cataract surgery. ALLERGIES: ARE TO METFORMIN AND SULFA DRUGS. HOME MEDICATIONS: Pending at the time of dictation. SOCIAL HISTORY: Denies any tobacco, alcohol, or illicits. FAMILY HISTORY: Notable for diabetes and hypertension. LABS AND IMAGING: All obtained from transfer records from [facility] Emergency Department. 1. White count 5.6, hemoglobin 9.8, hematocrit is 30.4, platelet count is 312. INR 1.3. 2. Sodium is 135, potassium 4.2, chloride 91, carbon dioxide 30, BUN 26, creatinine 0.76, glucose of 216, calcium is 9.0, protein 6.9, albumin is 3.5, bilirubin is 0.2, ALT is 34, AST 58, alkaline phosphatase is 112. 3. Troponin 0.70. 4. D-dimer 1.53, proBNP 2523. 5. EKG per my review shows normal sinus rhythm without evidence of any acute ischemia or infarction. 6. Chest x-ray per Radiology report from [facility] shows cardiomegaly and small right pleural effusion, but otherwise, no evidence of any volume overload or pneumonia. PHYSICAL EXAMINATION: VITAL SIGNS: Temperature is 97.8 degrees Fahrenheit, pulse is 103, respirations 20, saturating 97% on 3 L by nasal cannula, blood pressure 149/67. GENERAL: The patient is awake, alert, in no acute distress, resting comfortably in bed. She is a well-developed, well-nourished elderly female. HEENT: Atraumatic and normocephalic. Moist mucous membranes. Pupils are equal, round, reactive to light and accommodation. Extraocular eye movements intact. No scleral icterus. NECK: No jugular venous distention. No carotid bruits. CARDIAC: Tachycardic rate, regular rhythm. No murmurs, rubs, or gallops. Normal S1, S2. LUNGS: On oxygen, but in no distress. Does have bibasilar inspiratory rhonchi and crackles, but no wheezes appreciated. ABDOMEN: Soft, nontender, nondistended. Good bowel sounds. No rebound, guarding, or rigidity. EXTREMITIES: Warm and well perfused with no cyanosis, clubbing, or edema. SKIN: Warm and dry. PSYCH: Affect appropriate. NEURO: Alert and oriented x3. Cranial nerves 2 through 12 grossly intact. Speech is normal. Gait not assessed. History And Physical [address] [address] NAME: LUANA LANZA : [birth year] STATUS : ADM IN [facility]#: [id number] AGE: 86 ADM/REG DATE : 01/27/17 MR#: [id number] REPORT SERV DATE: 01/28/17 DICTATED BY: GARDENIA GLORIA DATE: 01/27/17 REPORT STATUS : Draft TRANSCRIBED BY: JAMIL DATE: 01/27/17 ASSESSMENT AND PLAN: Ms. Lanza is an 86-year-old female, who presents with acute onset of shortness of breath, found to have evidence of subtherapeutic INR as well as elevated troponin level. PROBLEM LIST: 1. Subtherapeutic INR. 2. Elevated troponin level. 3. History of DVT and presumed PE. 4. Shortness of breath. 5. Elevated BNP. 6. Hypoxemia. 7. Ofh-whslehe-hhlelkptb diabetes mellitus type 2. PLAN: 1. Elevated troponin level. The patient denies any chest pain. Her EKG is nonischemic. I suspect her troponin elevation is secondary to likely PE and/or other cause of demand ischemia. We will continue to trend out cardiac enzymes, EKG, as well as telemetry monitoring. We will place the patient on aspirin and continue her heparin drip. 2. Subtherapeutic INR. The patient's INR was 1.3 at [facility]. It was 2.3 upon discharge from here a few days ago. She is on a heparin drip. Continue Coumadin as managed by pharmacy. 3. History of DVT with presumed PE. I suspect that the patient's shortness of breath may be explained by pulmonary embolism especially in light of subtherapeutic INR. The patient is currently declining CTA of the chest, as she states she cannot lie flat. It appears that she also declined CT of the chest and V/Q scan during her previous admission. We will continue to monitor. 4. Shortness of breath. Suspect this is likely multifactorial in etiology due to likely presumed PE as well as likely acute bronchitis. We will place the patient on some DuoNebs, steroids, and antibiotics, and continue to monitor. 5. Elevated BNP. The patient had an elevated BNP level at [facility]. She also had mildly elevated BNP level here during her last admission. Echocardiogram was unremarkable. She did receive Lasix at [facility], therefore, we will hold off any further Lasix at this time. We will follow up results of a chest x-ray and our own BNP level. 6. Hypoxemia. Attempt to wean as tolerated as we treat her acute bronchitis as well as presumed PE. 7. DVT prophylaxis. Heparin infusion. CODE STATUS: The patient wished to be full code. JCB/MODL Gardenia Gloria MD History And Physical [address] [place]. [address] NAME: LUANA LANZA : [birth year] STATUS : ADM IN [facility]#: [id number] AGE: 86 ADM/REG DATE : 01/27/17 MR#: [id number] REPORT SERV DATE: 01/28/17 DICTATED BY: GARDENIA GLORIA DATE: 01/27/17 REPORT STATUS : Draft TRANSCRIBED BY: MATTHEWL DATE: 01/27/17 / [id number] CC: Denis Sherwood M.D. Ondrej J Lisy, M.D.
--- NOTE | ~2017-01-27 | CN ---
Consultation Report [place] [id number] [facility] [place]. [address] NAME: LUANA LANZA : [birth year] STATUS : ADM IN PAT#: [id number] AGE: 86 ADM/REG DATE : 01/27/17 MR#: [id number] REPORT SERV DATE: 01/28/17 DICTATED BY: ORLIN LEE DATE: 01/28/17 REPORT STATUS : Draft TRANSCRIBED BY: MODL DATE: 01/28/17 CARDIOLOGY CONSULT DATE OF CONSULTATION: 01/28/2017 PRIMARY TRAINER: Dr. Eric Quick. CONSULTATION REASON: Abnormal troponin. HISTORY OF PRESENT ILLNESS: Ms. Lanza is an 86-year-old female with known coronary artery disease (for medical management only with no targets for revascularization), who was readmitted to the Hospitalist Service after being discharged three days ago with recurrent chest pain/shortness of breath and a mildly increased troponin of 0.5. She was recently admitted to the Hospitalist Service and discharged two days ago with acute hypoxic respiratory failure and found to have a DVT with suspected pulmonary embolism. She was treated medically with Coumadin with a subtherapeutic at this time. She had no confirmatory testing for pulmonary embolism as she is unable to lie flat for additional testing such as CT scans. She is now resting comfortably. ECG shows no ischemic changes. Symptoms of chest pain were rest with precordial fullness and dyspnea, but no symptoms of exertional angina. She has had no palpitations or syncope. She denies orthopnea/PND. She has some mild left lower extremity edema at the site of her prior DVT. She is currently resting comfortably with no recurrent symptoms. REVIEW OF SYSTEMS: Pertinent positives and negatives are as outlined above, all others negative. PAST MEDICAL HISTORY: 1. Coronary artery disease, for medical management only. 2. Hypertension. 3. DVT/suspected PE. 4. Anticoagulation with Coumadin. 5. Diabetes mellitus type 2. CURRENT MEDICATIONS: 1. Atenolol 50 mg daily. 2. Aspirin 81 mg daily. 3. Coumadin as directed. 4. Lasix 20 mg twice daily. 5. Potassium supplementation. 6. Zofran p.r.n. 7. Glipizide as directed. 8. Guaifenesin daily. 9. Vitamin B12 supplementation. Consultation Report [place] [id number] [place]. [address] NAME: LUANA LANZA : [birth year] STATUS : ADM IN PAT#: [id number] AGE: 86 ADM/REG DATE : 01/27/17 MR#: [id number] REPORT SERV DATE: 01/28/17 DICTATED BY: ORLIN LEE DATE: 01/28/17 REPORT STATUS : Draft TRANSCRIBED BY: MODL DATE: 01/28/17 ALLERGIES: INCLUDE METFORMIN WHICH CAUSES ITCHING AND SULFA DRUGS CAUSE ITCHING. SOCIAL HISTORY: Ms. Lanza does not use tobacco products, consume alcohol, or illegal drugs. FAMILY HISTORY: Significant for CAD. PHYSICAL EXAMINATION: VITALS: Temperature is 97.2, pulse is 90, respirations 18, blood pressure is 148/68. GENERAL: Well-developed, chronically ill-appearing female, who is currently in no acute distress. HEENT: Sclerae anicteric, mucous membranes moist and without lesions. NECK: No jugular venous distention. No hepatojugular reflux, carotid upstrokes 2+ and symmetric, there are no carotid or subclavian bruit. LUNGS: Mildly decreased breath sounds bilaterally with faint right basilar crackles and no wheezes. CARDIOVASCULAR: Regular with distant S1 and S2. No audible S3. No audible murmurs. No parasternal lift. PMI is not palpable. ABDOMEN: Obese, soft, and nontender. Bowel sounds positive and normoactive. There is no rebound or guarding. PULSES: Radial and dorsalis pedis pulses are all 1+ and symmetric. EXTREMITIES: Warm with no right lower extremity edema and 1+ left lower extremity edema. SKIN: No clubbing or cyanosis, no rashes or lesions. IMPRESSION: 1. Demand ischemia. 2. Coronary artery disease for medical management only. 3. Deep venous thrombosis /pulmonary embolism, recent. 4. Anticoagulation with Coumadin. 5. Hypertension. 6. Diabetes mellitus type 2. PLAN: Recommend medical therapy optimization. I agree with IV heparin drip to a goal INR of greater than 2 on Coumadin. Continue aspirin. We will change atenolol to metoprolol given her advanced age, and for better heart rate and blood pressure control. This will be metoprolol 50 mg twice daily. We will add Imdur 30 mg b.i.d. for antianginal benefit. Change Lasix from 20 mg twice daily to 40 mg once daily for better upfront diuresis. No plans for any further events of cardiac testing given advanced age and known coronary artery disease for medical management only. AEA/JAMIL Orlin Cox Consultation Report [address] [place]. [address] NAME: LUANA LANZA : [birth year] STATUS : ADM IN PAT#: [id number] AGE: 86 ADM/REG DATE : 01/27/17 MR#: [id number] REPORT SERV DATE: 01/28/17 DICTATED BY: ORLIN LEE. DATE: 01/28/17 REPORT STATUS : Draft TRANSCRIBED BY: MODMissael DATE: 01/28/17 Denis Lee / [id number] CC: Denis Sherwood M.D.
[~2017-01-27 21:34] MED LIST changes: +ASAEC PO; +ATEN50 PO; +COUMADIN3 MG PO; +COUMADIN4 MG PO; +CYANO1000T PO; +HUMI PO; +KLOR-CON 1010 MEQ PO; +L20 PO; +ZOFRAN ODT4 MG PO
[2017-01-28 00:11] LABS: CPK 78 U/L (0-200)
[2017-01-28 00:15] LABS: CK-MB 1.7 NG/ML
[2017-01-28 00:16] LABS: TROPONIN I 0.61 NG/ML (<0.05)
[2017-01-28 02:15] LABS: BASOPHILS 0.2 %; BASOPHILS ABSOLUTE 0.01 10/3/uL (0.0-0.16); EOSINOPHILS 0.3 %; EOSINOPHILS ABSOLUTE 0.02 10/3/uL (0.0-0.53); HEMATOCRIT 34.4 % (36.0-48.0); HEMOGLOBIN 10.4 g/dL (12.0-16.0); IMMATURE GRANULOCYTES 0.5 %; IMMATURE GRANULOCYTES ABSOLUTE 0.03 10/3/uL (0.0-0.11); LYMPHOCYTES 14.3 %; LYMPHOCYTES ABSOLUTE 0.93 10/3/uL (0.67-4.30); MEAN CORPUS HGB CONC 30.2 g/dL (32.0-36.0); MEAN CORPUSCULAR HEMOGLOB 24.6 pg (26.0-34.0); MEAN CORPUSCULAR VOLUME 81.5 fL (80-100); MEAN PLATELET VOLUME 8.4 fL (9.2-13.0); MONOCYTES 4.2 %; MONOCYTES ABSOLUTE 0.27 10/3/uL (0.21-1.20); NEUTROPHILS 80.5 %; NEUTROPHILS ABSOLUTE 5.24 10/3/uL (2.02-8.40); PLATELET COUNT 284 10/3/uL (150-400); RBC DISTRIBUTION WIDTH 16.9 % (12.0-16.0); RED CELL COUNT 4.22 10/6/uL (4.0-5.6); WHITE BLOOD CELLS 6.5 10/3/uL (4.5-10.5)
[2017-01-28 02:16] LABS: MANUAL DIFF NO %
[2017-01-28 02:22] LABS: INTERNATIONAL NORMAL RATI 1.6 UNITS (-)
[2017-01-28 02:33] LABS: CALCIUM, SERUM 9.1 MG/DL (8.5-10.4); CHLORIDE, SERUM 96 MMOL/L (96-112); CO2 (CARBON DIOXIDE) 32 MMOL/L (24-34); CPK 73 U/L (0-200); CREATININE 0.93 MG/DL (0.55-1.02); GFR AFRICAN AMERICAN 64 ML/MIN (>=60); GFR NON AFRICAN AMERICAN 55 ML/MIN (>=60); POTASSIUM, SERUM 4.1 MMOL/L (3.5-5.3); SODIUM, SERUM 134 MMOL/L (135-148)
[2017-01-28 02:35] LABS: BUN (BLOOD UREA NITROGEN) 24 MG/DL (6-23); CK-MB 1.4 NG/ML; GLUCOSE, SERUM 181 MG/DL (60-99); PARTIAL THROMBO TIME 145.7 SEC (22.5-37.2); PROTIME (NOT ORD) 18.5 SEC (12.0-14.5)
[2017-01-28 02:36] LABS: TROPONIN I 0.53 NG/ML (<0.05)
[2017-01-29 05:16] LABS: BASOPHILS 0.1 %; BASOPHILS ABSOLUTE 0.01 10/3/uL (0.0-0.16); EOSINOPHILS 0 %; HEMATOCRIT 32.1 % (36.0-48.0); HEMOGLOBIN 9.7 g/dL (12.0-16.0); IMMATURE GRANULOCYTES 0.3 %; IMMATURE GRANULOCYTES ABSOLUTE 0.02 10/3/uL (0.0-0.11); LYMPHOCYTES 22.4 %; LYMPHOCYTES ABSOLUTE 1.63 10/3/uL (0.67-4.30); MEAN CORPUS HGB CONC 30.2 g/dL (32.0-36.0); MEAN CORPUSCULAR HEMOGLOB 24.4 pg (26.0-34.0); MEAN CORPUSCULAR VOLUME 80.9 fL (80-100); MONOCYTES 6.3 %; MONOCYTES ABSOLUTE 0.46 10/3/uL (0.21-1.20); NEUTROPHILS 70.9 %; NEUTROPHILS ABSOLUTE 5.15 10/3/uL (2.02-8.40); PLATELET COUNT 365 10/3/uL (150-400); RED CELL COUNT 3.97 10/6/uL (4.0-5.6); WHITE BLOOD CELLS 7.3 10/3/uL (4.5-10.5)
[2017-01-29 05:36] LABS: CALCIUM, SERUM 9.1 MG/DL (8.5-10.4); CHLORIDE, SERUM 98 MMOL/L (96-112); CO2 (CARBON DIOXIDE) 32 MMOL/L (24-34); CREATININE 0.92 MG/DL (0.55-1.02); GFR AFRICAN AMERICAN 65 ML/MIN (>=60); GFR NON AFRICAN AMERICAN 56 ML/MIN (>=60); POTASSIUM, SERUM 3.6 MMOL/L (3.5-5.3); SODIUM, SERUM 137 MMOL/L (135-148)
[2017-01-29 05:43] LABS: MANUAL DIFF NO %
[2017-01-29 05:45] LABS: BUN (BLOOD UREA NITROGEN) 32 MG/DL (6-23); GLUCOSE, SERUM 100 MG/DL (60-99)
[2017-01-29 05:46] LABS: TROPONIN I 0.26 NG/ML (<0.05)
[2017-01-30 05:42] LABS: BASOPHILS 0.2 %; BASOPHILS ABSOLUTE 0.01 10/3/uL (0.0-0.16); EOSINOPHILS 0 %; HEMATOCRIT 31.6 % (36.0-48.0); HEMOGLOBIN 9.6 g/dL (12.0-16.0); IMMATURE GRANULOCYTES 0.2 %; IMMATURE GRANULOCYTES ABSOLUTE 0.01 10/3/uL (0.0-0.11); LYMPHOCYTES 25.5 %; LYMPHOCYTES ABSOLUTE 1.63 10/3/uL (0.67-4.30); MEAN CORPUS HGB CONC 30.4 g/dL (32.0-36.0); MEAN CORPUSCULAR HEMOGLOB 24.9 pg (26.0-34.0); MEAN CORPUSCULAR VOLUME 81.9 fL (80-100); MEAN PLATELET VOLUME 8.5 fL (9.2-13.0); MONOCYTES 5.6 %; MONOCYTES ABSOLUTE 0.36 10/3/uL (0.21-1.20); NEUTROPHILS 68.5 %; NEUTROPHILS ABSOLUTE 4.37 10/3/uL (2.02-8.40); PLATELET COUNT 336 10/3/uL (150-400); RBC DISTRIBUTION WIDTH 17.3 % (12.0-16.0); RED CELL COUNT 3.86 10/6/uL (4.0-5.6); WHITE BLOOD CELLS 6.4 10/3/uL (4.5-10.5)
[2017-01-30 05:44] LABS: MANUAL DIFF NO %
[2017-01-30 05:46] LABS: INTERNATIONAL NORMAL RATI 1.6 UNITS (-); PROTIME (NOT ORD) 19.2 SEC (12.0-14.5)
[2017-01-30 05:47] LABS: PARTIAL THROMBO TIME 89.8 SEC (22.5-37.2)
[2017-01-30 05:54] LABS: BUN (BLOOD UREA NITROGEN) 31 MG/DL (6-23); CALCIUM, SERUM 8.7 MG/DL (8.5-10.4); CHLORIDE, SERUM 103 MMOL/L (96-112); CO2 (CARBON DIOXIDE) 32 MMOL/L (24-34); CREATININE 0.78 MG/DL (0.55-1.02); GFR AFRICAN AMERICAN 79 ML/MIN (>=60); GFR NON AFRICAN AMERICAN 68 ML/MIN (>=60); GLUCOSE, SERUM 84 MG/DL (60-99); POTASSIUM, SERUM 3.8 MMOL/L (3.5-5.3); SODIUM, SERUM 140 MMOL/L (135-148)
[2017-01-30] MEDS ORDERED: IMDUR30 PO (12:15)
[2017-01-30] MEDS ORDERED: LOP50 PO (12:16)
[2017-01-30] MEDS ORDERED: XARELTO20 MG PO (12:19)
[2017-03-21] MEDS ORDERED: HALF81 PO (19:46)
[2017-03-21] MEDS ORDERED: XARELTO20 MG PO (19:47)
[2017-03-21] MEDS ORDERED: IMDUR30 PO (19:48)
[2017-03-21] MEDS ORDERED: NITROSTAT0.4 MG SL (19:49)
[2017-03-21] MEDS ORDERED: COZ50 PO (19:50)
[2017-03-21] MEDS ORDERED: GLUCOTRO10 PO (19:50)
[2017-03-21] MEDS ORDERED: PERI-COLACE1 TAB PO (19:57)
[2017-04-19] MEDS ORDERED: KLOR-CON 1010 MEQ PO (20:13)
[2017-04-19] MEDS ORDERED: PRILO PO (20:13)
[2017-04-19] MEDS ORDERED: REG5 PO (20:13)
[2017-04-19] MEDS ORDERED: BUM1 PO (20:13)
[2017-04-19] MEDS ORDERED: VIST50 PO (20:15)
[2017-04-19] MEDS ORDERED: ZOLOFT25 MG PO (20:15)
== END 2017-01-30 15:01 | disposition home health service (06) | DRG 175 ==
LOC: 6NO 21:34
PROVIDERS: Internal Medicine
DX: I26.99 Other pulmonary embolism without acute cor pulmonale (principal); J96.21 Acute and chronic respiratory failure with hypoxia; I24.8 Other forms of acute ischemic heart disease; I82.402 Acute embolism and thrombosis of unspecified deep veins of left lower extremity; E11.9 Type 2 diabetes mellitus without complications; D64.9 Anemia, unspecified; I25.10 Atherosclerotic heart disease of native coronary artery without angina pectoris; E53.8 Deficiency of other specified B group vitamins; E55.9 Vitamin D deficiency, unspecified; Z87.01 Personal history of pneumonia (recurrent); Z79.82 Long term (current) use of aspirin; Z66 Do not resuscitate; Z88.2 Allergy status to sulfonamides; Z88.8 Allergy status to other drugs, medicaments and biological substances
CPT/HCPCS: 71010; 80048; 82550; 82553; 82962; 83735; 83880; 84484; 85025; 85610; 85730; 93005; A9270-GY